=== PATIENT | female | born 1985 | race Caucasian/White ===

== ENCOUNTER 2023-01-24 19:44 | Outpatient (OUT) | payer OTHER, SELFPAY | END 2023-01-24 19:45 | disposition home or self-care (01) | LOC: SLEEP 19:44 | DX: G47.33 Obstructive sleep apnea (adult) (pediatric) (principal); F51.01 Primary insomnia; G47.11 Idiopathic hypersomnia with long sleep time | CPT/HCPCS: 95810 ==